=== PATIENT | male | born 1980 | race American Indian/Alaskan Native ===

== ENCOUNTER 2018-12-30 22:34 | Emergency (ER) | payer BC ==
[2018-12-30 23:37] VITALS: BP 137/80
[2018-12-30] MEDS ORDERED: TYLENOL ONE (23:37)
[2018-12-30] MEDS ORDERED: TYLENOL PO ONE (23:38)
--- NOTE | 2018-12-31 01:30 | Emergency Department Report ---
- General Chief Complaint: Sore Throat Stated Complaint: THROAT PAIN Time Seen by Provider: 12/31/18 01:12 Source: patient Mode of arrival: Ambulatory Limitations: No Limitations - History of Present Illness Initial Comments: 38-year-old -[place] male presents to the emergency room for sore throat, ear popping and nasal congestion 2 days. Patient reports it is taken Sudafed and TheraFlu max without much resolution. Patient reports no past medical history currently takes no medications on a daily basis has no known drug allergies. He has not taken anything for pain since 6 PM yesterday evening. He denies any fever or chills or nausea no vomiting no diarrhea. MD Complaint: sore throat, rhinorrhea, nasal congestion -: days(s) (2) Severity scale (0 -10): 10 Consistency: constant Improves With: nothing Associated Symptoms: rhinorrhea, nasal congestion, sore throat Treatments Prior to Arrival: none - Related Data Previous Rx's Medication Instructions Recorded Last Taken Type Dexchlorpheniram/Phenylephrine 1 each PO Q6H 5 Days #20 tab 12/31/18 Unknown Rx [Rymed Tablet] Fluticasone [Flonase] 1 spray NS QDAY #1 bottle 12/31/18 Unknown Rx Ibuprofen [Motrin 600 MG tab] 600 mg PO Q8H PRN #15 tablet 12/31/18 Unknown Rx Oxymetazoline 0.05% [Afrin] 1 spray NS QHS PRN #1 bottle 12/31/18 Unknown Rx Allergies Allergy/AdvReac Type Severity Reaction Status Date / Time No Known Allergies Allergy Verified 12/30/18 23:42 ED Review of Systems ROS: Stated complaint: THROAT PAIN Other details as noted in HPI ENT: ear pain (popping), throat pain, congestion ED Past Medical Hx - Past Medical History Previous Medical History?: No - Surgical History Past Surgical History?: No - Social History Smoking Status: Current Every Day Smoker Substance Use Type: None - Medications Home Medications: Home Medications Medication Instructions Recorded Confirmed Last Taken Type Dexchlorpheniram/Phenylephrine 1 each PO Q6H 5 Days #20 tab 12/31/18 Unknown Rx [Rymed Tablet] Fluticasone [Flonase] 1 spray NS QDAY #1 bottle 12/31/18 Unknown Rx Ibuprofen [Motrin 600 MG tab] 600 mg PO Q8H PRN #15 tablet 12/31/18 Unknown Rx Oxymetazoline 0.05% [Afrin] 1 spray NS QHS PRN #1 bottle 12/31/18 Unknown Rx ED Physical Exam - General Limitations: No Limitations General appearance: alert, in no apparent distress - Head Head exam: Present: atraumatic, normocephalic - Eye Eye exam: Present: EOMI - Expanded ENT Exam Expanded TM/Canal exam: Loss of Landmarks: Right TM, Left TM (bilateral tympanic membrane retraction) Throat exam: Positive: tonsillar erythema, tonsillomegaly. Negative: tonsillar exudate - Neck Neck exam: Present: normal inspection, full ROM. Absent: lymphadenopathy - Respiratory Respiratory exam: Present: normal lung sounds bilaterally. Absent: respiratory distress - Cardiovascular Cardiovascular Exam: Present: regular rate, normal rhythm. Absent: systolic murmur, diastolic murmur, rubs, gallop - Psychiatric Psychiatric exam: Present: normal affect, normal mood - Skin Skin exam: Present: warm, dry, intact, normal color. Absent: rash ED Course Vital Signs 12/30/18 23:33 Temperature 97.8 F Pulse Rate 87 Respiratory 18 Rate Blood Pressure 137/80 O2 Sat by Pulse 98 Oximetry ED Medical Decision Making - Medical Decision Making Patient has been evaluated by this provider in fast track. Patient was given pain medication in triage. Rapid strep was negative We will prescribe Flonase,Rymed and Afrin at night. Critical care attestation.: If time is entered above; I have spent that time in minutes in the direct care of this critically ill patient, excluding procedure time. ED Disposition Clinical Impression: Head cold Disposition: DC-01 TO HOME OR SELFCARE Is pt being admited?: No Does the pt Need Aspirin: No Condition: Stable Instructions: Cold Symptoms (ED), Allergic Rhinitis (ED) Additional Instructions: Please take medication as prescribed. Increase her water intake while taking medication. If her symptoms persist or gets worse please follow up with her primary care provider. Prescriptions: Oxymetazoline 0.05% [Afrin] 1 spray NS QHS PRN #1 bottle PRN Reason: Nasal Congestion Dexchlorpheniram/Phenylephrine [Rymed Tablet] 1 each PO Q6H 5 Days #20 tab Fluticasone [Flonase] 1 spray NS QDAY #1 bottle Ibuprofen [Motrin 600 MG tab] 600 mg PO Q8H PRN #15 tablet PRN Reason: Pain Referrals: [facility] [Provider Group] - 3-5 Days
== END 2018-12-31 01:50 | disposition home or self-care (01) ==
LOC: ED 22:34
DX: J00 Acute nasopharyngitis [common cold] (principal); F17.200 Nicotine dependence, unspecified, uncomplicated
CPT/HCPCS: 87116; 87430